=== PATIENT | female | born 1960 | race Caucasian/White ===

== ENCOUNTER 2016-12-13 18:03 | Inpatient (IN) | payer SELFPAY ==
[~2016-12-13] VITALS: Ht 167.6 cm; Wt 92.0 kg
--- NOTE | ~2016-12-13 | DS ---
ADMIT: 12/13/2016 RM/LOC: [facility] MR#: [id number] [address] [id number] JARED SCHMIDT [address] [place] [address] Discharge Summary SEX: F AGE: 56 : 1960 ADMISSION DATE: 12/13/2016 DISCHARGE DATE: 12/16/2016 HISTORY: Patient presented with chest pain to the emergency room with known underlying diabetes, coronary artery disease, coronary stenting, and tobacco. She was admitted to the hospital and underwent emergency room lab evaluation but then refused any further workup or evaluation. She did have a CT scan suggesting ground-glass appearance and pneumonia. HOSPITAL COURSE: My initial assessment and evaluation was disappointing. The patient refused to allow me to examine her or perform any further followup lab and insisted that she would be leaving against medical advice. She is a city call patient and therefore, I am unsure as to her outpatient management and care arrangements. I talked to her about the need for appropriate cardiac workup, lab, and assessment to provide safe and ongoing disease management. She stated that she would see Dr. Arevalo, her migratory farm hand in [place] for further cardiac workup and stress evaluation immediately upon dismissal from the hospital. Ultimately, she decided to stay for an additional [address] Yao saw her and continued treatment for pneumonia and followup chest x-ray. She did rule out for acute coronary syndrome and myocardial infarction. We talked to her about smoking cessation and further management of her uncontrolled diabetes. She did insist on dismissal and I believe full hospital care and management of her pneumonia, diabetes, and chest pain. She was dismissed with recommendations that she follow up with her migratory farm hand in [place] immediately upon dismissal and that she receive a Z-Alex. Canelo Linares DO/ kelvin JOB #: [id number] CC: Canelo Linares DO, Attending Physician Canelo Linares DO, Family Physician
--- NOTE | 2016-12-15 09:16 | ER ---
ADMIT: 12/13/2016 RM/LOC: 427 [facility] MR#: [id number] [facility]#: [id number] 26[address] [facility] [address] [place] [id number] JARED SCHMIDT [address] [place] [address] Emergency Room Report SEX: F AGE: 56 : 1960 DATE: 12/13/2016 ADDENDUM: CHIEF COMPLAINT: Chest pain. HISTORY OF PRESENT ILLNESS: This is a 56-year-old female who has history of cardiac disease and diabetes. She just saw her bleacher [employer] yesterday, was taken off her metoprolol due to hypotension. Today, she was just sitting and her children were bringing her some water to her house and she developed chest pain. She came into the ER within 30 minutes of that chest pain. Says it has been constant, feels very similar to when she had a stent placed 6 months ago. COURSE IN THE ER: Cardiac routine was ordered. Overall findings, CMP showed the glucose level of 114, GFR slightly low at 84. Troponin, CK, and MB are all within normal range. Electrolytes are normal. CBC was normal except for white count of 10.3, hemoglobin of 16.5. EKG showed sinus tachycardia with rate of 109. CT of her chest and head was done, CT of the chest showed right- sided pneumonia read by Dr. Morton. CT of the head showed questionable aneurysm that needs followed up. Dr. Linares was re-called regarding this patient for chest pain rule out and right middle lobe pneumonia. Levaquin 750 mg IV has been started down here in the emergency room. CLINICAL IMPRESSION: 1. Chest pain. 2. Diabetes with hyperglycemia. 3. Right-sided pneumonia. DISPOSITION: Stable at admit. LUIS ENRIQUE Arias / Gurinder Canela MD / polyl JOB #: [id number] CC: Canelo Linares DO, Attending Physician Canelo Linares DO, Family Physician
[2016-12-17] MEDS ORDERED: NEURONTIN DPS300 MG PO (09:40)
[2016-12-17] MEDS ORDERED: EFFIENT10 MG PO (09:40)
[2016-12-17] MEDS ORDERED: MOBIC DPS7.5 MG PO (09:40)
[2016-12-17] MEDS ORDERED: MEVACOR20 MG PO (09:40)
[2016-12-17] MEDS ORDERED: TOUJEO SOL300 UNIT/1 SQ (09:41)
[2016-12-17] MEDS ORDERED: GLUCOTROL DPS5 MG PO (09:41)
[2016-12-17] MEDS ORDERED: JANUMET 50-5001 EACH PO (09:41)
[2016-12-17] MEDS ORDERED: NOVOLOG100 UNIT/2 SQ (09:43)
[2016-12-17] MEDS ORDERED: MELATONIN1 MG PO (09:43)
[2016-12-17] MEDS ORDERED: FLEXERIL-DPS10 MG PO (09:43)
[2016-12-17] MEDS ORDERED: VITAMIN B-12500 MCG PO (09:43)
[2016-12-17] MEDS ORDERED: ZITHROMAX250 MG PO (09:44)
[2016-12-17] MEDS ORDERED: NICOTINE PATCH1 EAC4 TP (09:44)
--- NOTE | 2017-01-31 08:20 | HP ---
ADMIT: 12/13/2016 RM/LOC: 427 [facility] MR#: [id number] 26[address] [facility] [address] [place] [id number] JARED SCHMIDT Esteban [address] [place] [address] History and Physical SEX: F AGE: 56 : 1960 DATE OF SERVICE: REASON FOR HOSPITALIZATION: Chest pain. HISTORY OF PRESENT ILLNESS: A 56-year-old female patient, presented with chest pain to the emergency room, has known underlying history of diabetes, coronary artery disease, and recently had her metoprolol discontinued for her hypotension. She has a medical history of stenting procedure. Socially, she has history of tobacco. I attempted to perform a thorough history and physical examination; however, the patient refused. She, at my initial assessment, announced that she was refusing care and she would not undergo any further evaluation and that she was planning to leave against medical advice. Her initial white blood cell count was 10.3, cardiac enzymes negative, and she refused followup lab after her 1st set of emergency room labs. CAT scan showed ground-glass pneumonia. IMPRESSION: 1. Chest pain. 2. Known coronary artery disease. 3. Pneumonia. 4. Ongoing tobacco use. 5. Diabetes mellitus. PLAN: I offered continued care; however, she refused even the basics of cardiac enzymes and workup. After a lengthy discussion, she simply stated that she could not go through any further workup and that she was going to leave against medical advice. We were going to try to work with her to provide her with further care. Canelo Linares DO/ kelvin JOB #: [id number] CC: Canelo Linares DO, Attending Physician Canelo Linares DO, Family Physician
== END 2016-12-16 15:53 | disposition home or self-care (01) | DRG 190 ==
LOC: ER 18:03 → 4PCU 20:55
PROVIDERS: ADMIT Internal Medicine
DX: J44.0 Chronic obstructive pulmonary disease with (acute) lower respiratory infection (principal); J18.9 Pneumonia, unspecified organism; E11.65 Type 2 diabetes mellitus with hyperglycemia; R07.9 Chest pain, unspecified; F10.10 Alcohol abuse, uncomplicated; F17.200 Nicotine dependence, unspecified, uncomplicated; I25.10 Atherosclerotic heart disease of native coronary artery without angina pectoris; Z95.5 Presence of coronary angioplasty implant and graft